=== PATIENT | male | born 1955 | race Caucasian/White ===

== ENCOUNTER 2022-03-07 08:16 | Day surgery (SDC) | payer BC, OTHER ==
[~2022-03-07] VITALS: Ht 175.3 cm; Wt 127.6 kg
[~2022-03-07 08:16] MED LIST: CEFAZOLIN SOD 1 GM in D5W 50 ML IV ONE
[2022-03-07] MEDS ORDERED: ONDANSETRON HCL 4 MG/2 ML VIAL IVP PRN ×2 (15:45→18:00)
[2022-03-07] MEDS ORDERED: METOCLOPRAMIDE HCL 10 MG/2 ML VIAL IVP PRN (15:45)
[2022-03-07] MEDS ORDERED: fentaNYL CITRATE/PF 100 MCG/2 ML AMP IVP PRN ×2 (15:45)
[2022-03-07] MEDS ORDERED: ACETAMINOPHEN 325 MG TABLET PO PRN (18:00)
[2022-03-07] MEDS ORDERED: HYDROmorphone 1 MG/ML INJ. CARTRIDGE IVP PRN (18:00)
[2022-03-07] MEDS ORDERED: HYDROcodone/ACETAMIN 5-325 MG TAB (NORCO/ VICODIN) PO PRN ×2 (18:00)
[2022-03-07] MEDS ORDERED: fentaNYL CITRATE/PF 100 MCG/2 ML AMP ONE (18:15)
[2022-03-07] MEDS ORDERED: PHENYLEPHRINE HCL 10 MG/ML VIAL (NEOSYNEPHRINE) ONE (18:15)
[2022-03-07] MEDS ORDERED: MIDAZOLAM HCL 5 MG/ML VIAL (VERSED) IV ONE (18:15)
[2022-03-07] MEDS ORDERED: LR 1,000 ML IV.SOLN IV ONE (18:15)
[2022-03-07] MEDS ORDERED: NS IRRIG SOLN 1000 ML IR ONE (18:15)
[2022-03-07] MEDS ORDERED: BUPIVACAINE /PF 0.25% 30 ML VIAL INJ ONE (18:15)
[2022-03-07] MEDS ORDERED: SEVOFLURANE 15 MIN GAS INH ONE (18:15)
[2022-03-07] MEDS ORDERED: PROPOFOL 200MG/ 20ML VIAL (DIPRIVAN) IV ONE (18:15)
[2022-03-07] MEDS ORDERED: GLYCOPYRROLATE 0.2 MG/ML VIAL ONE (18:15)
[2022-03-07] MEDS ORDERED: ROCURONIUM BROMIDE 10 MG/ML (ZEMURON) ONE (18:15)
[2022-03-07] MEDS ORDERED: ONDANSETRON HCL 4 MG/2 ML VIAL ONE (18:38)
[2022-03-07] MEDS: fentaNYL CITRATE/PF 100 MCG/2 ML AMP ONE ×2 (18:40→18:42)
[2022-03-07] MEDS ORDERED: CEFAZOLIN 1 GM IVPB PREMIX 100 ML IV ONE (21:29)
[2022-03-07 22:15] VITALS: BP_SYST 135
[2022-03-07] MEDS: CEFAZOLIN 1 GM IVPB PREMIX 50 ML IV SCH (22:42)
[2022-03-07] MEDS: D5/0.45 NS 1,000 ML IV SCH (22:42)
[2022-03-08] VITALS: BP_SYST 142
--- NOTE | 2022-03-08 | NUR ---
ADMIT NOTE Received pt from OR to the floor with a diagnosis of LEFT HERNIA REPAIR. Admission process initiated. patient oriented to pain management, safety and call light-teach back done procedures explained call campos use & safety measures , verbalize understanding .
--- NOTE | 2022-03-08 00:43 | NUR ---
Hourly Rounding LEFT INGUINAL surgical site clean dry no bleeding NOTED continue to monitor .
[2022-03-08] MEDS: CEFAZOLIN 1 GM IVPB PREMIX 50 ML IV SCH (05:51)
[2022-03-08] MEDS: D5/0.45 NS 1,000 ML IV SCH (05:52)
[2022-03-08 08:00] VITALS: BP_SYST 145
[2022-03-08] MEDS ORDERED: ENOXAPARIN SODIUM 30 MG/0.3 ML SYRINGE SUBCUT SCH (09:00)
[2022-03-08 13:43] VITALS: BP_SYST 145
--- NOTE | 2022-03-08 17:02 | NUR ---
0800: AWAKE, ALERT, ORIENTED X 3 TO NAME, PERSON, PLACE, AND TIME. RESPIRATION EVEN AND UNLABORED NO S/S OF ANY ACUTE DISTRESS NOTED. ABLE TO VERBALIZE NEEDS NO C/O ANY PAIN OR DISCOMFORT NOTED. ABDOMEN SOFT AND NON-DISTENDED, POSITIVE BOWEL SOUND X 4 NO N/V OR DIARRHEA NOTED. SKIN WARM AND DRY WITH LEFT LOWER QUADRANT INCISION WITH DRESSING INTACT NO BLEEDING OR DISCHARGE NOTED. PEDAL PULSES, PALPABLE. 1450: PATIENT DISCHARGE HOME PER DR. Michelle DESIR, REPORT DRESSING AND MAY SHOWER TOMORROW IN AM. F/U WITH SURGEON NEXT WEEK. ALSO INSTRUCTED PATIENT ON S/S OF INFECTION FOR INCISION. PATIENT VERBALIZE UNDERSTANDING AND WILL COMPLY WITH INSTRUCTION GIVEN. PATIENT WAS PICKED UP BY SPOUSE @ THE [facility]
== END 2022-03-08 14:35 | disposition home or self-care (01) ==
LOC: SMU 08:16 → SDS 08:16 → SMU 08:23 → EDSTATUS 10:20 → SMU 17:55 → SDS 03-08 14:35
PROVIDERS: ATTEND Colon & Rectal Surgery
DX: K40.30 Unilateral inguinal hernia, with obstruction, without gangrene, not specified as recurrent (principal); J45.909 Unspecified asthma, uncomplicated; E66.01 Morbid (severe) obesity due to excess calories; Z85.810 Personal history of malignant neoplasm of tongue; Z20.822 Contact with and (suspected) exposure to COVID-19
CPT/HCPCS: 36415; 49507; 87081; 87426; C1781; J0690 ×2; J1650; J2250; J2370; J2405; J2704; J3010; J3490 ×2; J7060; J7120